=== PATIENT | female | born 1975 ===

== ENCOUNTER 2021-09-17 17:48 | Emergency (ER) | payer SELFPAY ==
[2021-09-17 17:50] VITALS: BP 154/68; PULSE 86; RESP 16; TEMP 36.8; O2SAT 97
--- NOTE | 2021-09-17 18:15 | ED.GENADUL_ITS ---
Discharge Plan Discharge Details Chief Complaint: Orthopedic Primary Care Provider: Martha Keller ED Provider: Jasiel Kimble Home Meds and New Rx's Prescriptions: No Action levothyroxine 50 mcg tablet 50 mcg PO DAILY Qty: 90 3RF Medical Decision Making Medical Records Medical records narrative: Patient's clinical presentation is consistent with first acute gout attack. I do not believe she has cellulitis. There is no trauma. This point she will be given 1 dose of colchicine 1.2 mg emergency department followed by 0.6 mg an hour. She has an appointment with her PCP tomorrow, I will defer to her PCP for any blood work. R HPI General Date/Time Provider Initiated Documentation: 09/17/21 17:58 . HPI Narrative: 46-year-old lady presents to the Emergency Department for evaluation of right great toe pain. She states the pain started 3 days ago. He has been progressively getting worse. She does notice some redness overlying the base of the great toe. The skin is extremely sensitive to touch. Movement and walking makes the pain worse also she took 1 dose of naproxen now. Comes to the emergency department with likely police. She has never had this type of pain before. There is no trauma. No fevers no chills. The patient does have a diet rich in red meat/cheese. Related Data Home Medications Medication Instructions Recorded Confirmed levothyroxine 50 mcg tablet 50 mcg PO DAILY #90 tabs 11/03/20 09/17/21 Previous Rx's Medication Instructions Recorded levothyroxine 50 mcg tablet 50 mcg PO DAILY #90 tabs 11/03/20 Allergies Allergy/AdvReac Type Severity Reaction Status Date / Time No Known Allergies Allergy Verified 09/17/21 17:53 General Stated Complaint: Orthopedic CHASIDY: 4 Review of Systems Narrative: Constitutional negative for fever chills malaise fatigue GI no nausea no vomiting MSK see HPI Skin see HPI Neuro negative Psych she is anxious secondary to pain Endo no weight gain or weight loss PFSH All Active Problems (Updated 12/31/19 @ 10:37 by Brina Vega NP) Hypothyroidism (Chronic) Sebaceous cyst (Acute) Subclinical hypothyroidism (Acute) Obesity (Chronic) Encounter to establish care (Acute) Irregular menstrual cycle (Acute) Hyperlipidemia (Acute) Stress incontinence (Acute) Depression (Chronic) with mood swings Medical History Depression with mood swings Hyperlipidemia Hypothyroidism Irregular menstrual cycle Obesity Pericarditis Stress incontinence Subclinical hypothyroidism Surgical History History of bladder surgery bladder sling Hx LEEP (loop electrosurgical excision procedure), cervix, (07/31/06) Family History Mother Asthma Heart disease Maternal Uncle Cancer Paternal Grandfather Heart disease Paternal Uncle Hypertension Social History Smoking/Tobacco Use Status: Former Tobacco Use Quit Date: 04/21/15 Tobacco: How many years used: 15 Smoking risk assessment performed?: Yes Alcohol Intake: current Alcohol Intake frequency: holidays/special occasions only Alcohol type: wine Drug use: Never Substance use type: does not use Adopted: No Caregiver/Support person: No Foster care: No Household members: spouse Housing: house Number of Children: 3 Education Level: master's degree Do you need help understanding health information?: Rarely current occupation: [employer], [employer] Sexually active: Yes Do you think of yourself as: straight/heterosexual Current gender identity: female What type of physical activity do you participate in: walking, regular exercise and other Frequency: daily Seatbelt use: sometimes Helmet use: No Drive intox or ride w/intox [employer] truck driver: No Working smoke detector in home: Yes Fire extinguisher in home: Yes Carbon monox detector in home: Yes Firearms in home: Yes Firearms unloaded and locked: Yes Do you feel safe at home: Yes Do you feel safe in your relationship?: Yes Exam Narrative Exam Narrative: Awake alert Denio x3 mild discomfort. Cooperative pleasant PERRLA EOMI anicteric MMM Respiratory normal work of breathing Cardiovascular normal cap refill Skin. She has some erythema overlying the base of the right great toe. Skin is tender to patient. There is no streaking. MSK pain with motion of the right great toe. Neuro grossly intact Course Vital Signs Vital signs: Vital Signs Temperature 36.8 C 09/17/21 17:50 Pulse 86 09/17/21 17:50 Respiratory Rate 16 09/17/21 17:50 Blood Pressure 154/68 H 09/17/21 17:50 Pulse Oximetry 97 09/17/21 17:50 Temperature 36.8 C 09/17/21 17:50 Temperature Source Temporal Artery Scan 09/17/21 17:50 Pulse 86 09/17/21 17:50 Respiratory Rate 16 09/17/21 17:50 Respiratory Effort 09/17/21 17:54 Blood Pressure 154/68 H 09/17/21 17:50 Blood Pressure Position Sitting 09/17/21 17:50 Pulse Oximetry 97 09/17/21 17:50 Oxygen Delivery Method Room Air 09/17/21 17:50 Oxygen Flow Rate 0 09/17/21 17:50 Pain Level 10 09/17/21 17:56
[2021-09-17] MEDS: Colchicine 0.6 MG TAB 1.2 MG PO (18:34)
[2021-09-17] MEDS: Colchicine 0.6 MG TAB PO (18:59)
== END 2021-09-17 19:00 | disposition home or self-care (01) ==
PROVIDERS: Emergency Provider Emergency Medicine; PCP Nurse Practitioner
DX: M10.9 Gout, unspecified (principal)
CPT/HCPCS: 99283

== ENCOUNTER 2022-11-07 10:05 | Outpatient (CLI) | payer MEDICAID, SELFPAY ==
[2022-11-07 10:57] LABS: Anion Gap 8.3 mmol/L (3-11); BUN 13 mg/dL (7-18); CO2 28.7 mmol/L (21.0-32.0); CREATININE 0.9 mg/dL (0.55-1.02); Calcium 9.4 mg/dL (8.5-10.1); Chloride 104 mmol/L (98-107); Estimated GFR 78.37 (mL/min/1.73m2); Glucose 88 mg/dL (74-106); Potassium 4.4 mmol/L (3.5-5.1); Sodium 141 mmol/L (136-145)
[2022-11-07 11:12] LABS: Vitamin D 25 Total 24.8 ng/mL (30-100)
== END 2022-11-07 10:06 | disposition home or self-care (01) ==
LOC: LBO 10:07
PROVIDERS: PCP Nurse Practitioner; Visit Provider Nurse Practitioner
DX: E55.9 Vitamin D deficiency, unspecified (principal); E03.9 Hypothyroidism, unspecified
CPT/HCPCS: 36415; 80048; 82306; 84439; 84443

== ENCOUNTER 2023-09-26 15:14 | Outpatient (CLI) | payer SELFPAY ==
[2023-09-26 12:42] LABS: TSH (W/Ref FT4) 3.11 uIU/mL (0.36-3.74)
[2023-09-27 13:07] LABS: Lab Add On Test DONE
[2023-09-27 13:25] LABS: FREE T4 0.78 ng/dL (0.76-1.46)
== END 2023-09-26 15:15 | disposition home or self-care (01) ==
LOC: LBO 15:15
PROVIDERS: Student in an Organized Health Care Education/Training Program; PCP Nurse Practitioner; Visit Provider Family Medicine
DX: E03.9 Hypothyroidism, unspecified (principal); R79.89 Other specified abnormal findings of blood chemistry
CPT/HCPCS: 36415; 84439; 84443